=== PATIENT | female | born 1985 | race Caucasian/White ===

== ENCOUNTER → 2016-11-04 | Day surgery (SDC) | payer BC ==
--- NOTE | 2016-10-31 14:09 | Pre-Procedure Note/Attestation ---
Pre-Procedure Note/Attestation Complete Prior to Procedure Planned Procedure: not applicable Procedure Narrative: 1. Septoplasty 2. Submucous resection bilateral inferior turbinates. Indications for Procedure Pre-Operative Diagnosis: 1. Nasal septal deviation 2. Hypertrophied inferior turbinates Attestation I attest that I discussed the nature of the procedure; its benefits; risks and complications; and alternatives (and the risks and benefits of such alternatives ), prior to the procedure, with the patient (or the patient's legal sales representative consultant). I attest that, if there was a reasonable possibility of needing a blood transfusion, the patient (or the patient's legal sales representative consultant) was given the [facility] standardized written summary, pursuant to the [place] Blood Safety Act ([place] Health and Safety Code # 1645, as amended). I attest that I re-evaluated the patient just prior to the surgery and that there has been no change in the patient's H&P, job # [id number] Please note that the pt. has tolerate Ceftin in the past even though allergic to Amoxicillin. YUDELKA HOLCOMB Oct 31, 2016 14:09
--- NOTE | 2016-10-31 20:57 | Pre-op HX & Phy Repo 2 SIG ---
DATE OF ADMISSION: 11/04/2016 The patient had her History and Physical on 10/21/2016. INDICATION FOR SURGERY: The patient with nasal septal deviation and hypertrophied bilateral inferior turbinates who has failed nasal steroids and antihistamines. She is unable to breathe through her nose. PAST MEDICAL HISTORY: Significant for allergy, deviated nasal septum, hypertrophied turbinates as noted above. SOCIAL HISTORY: She has been a smoker daily for many years. She is single. No children. Denies alcohol or drug use. She is a student in clinical psychology. PAST SURGICAL HISTORY: Appendectomy at 15 years old in 2000, recently in 2004, voluntary interruption of in 2014. ALLERGIES: She is allergic to many antibiotics including sulfa drugs, guaifenesin, and amoxicillin. She is also allergic to shellfish. MEDICATIONS: Adderall; Ceftin, which she can tolerate and has in the past; Klonopin; cetirizine; Prozac; Flonase; and hydroxyzine pamoate. In addition, she also has Ashby for postoperative pain. PHYSICAL EXAMINATION: GENERAL: The patient is a 31-year-old female, 6'4", 190 pounds, BMI 32.61. VITAL SIGNS: Blood pressure 120/80, temperature 98.6, pulse 74, and respiratory rate 13. HEENT: Head, normocephalic. Eyes, PERRLA, EOMI. Nasal septal deviation. Hypertrophied bilateral inferior turbinates. Mouth, normal. CHEST: Clear to A and P. HEART: Normal S1 and S2. No S3 or S4. No murmur, bruit, gallop, or rub. EXTREMITIES: Grossly normal. ABDOMEN: Soft. Nontender. Normoactive bowel sounds. GENITOURINARY: Not done, and she has it done on a regular basis by her [employer] PROFESSIONAL. ASSESSMENT: She is a candidate for septoplasty and submucosal resection of right and left inferior turbinates because she has failed nasal steroids and antihistamines. PLAN: As above. Sky Olivia M.D. DR: MAUREEN JOB#: [id number] CC:
[2016-11-04] VITALS (10 sets, daily range): BP systolic 113–166; BP diastolic 58–114
[~2016-11-04] VITALS: Ht 162.6 cm; Wt 88.5 kg
[~2016-11-04] MED LIST: ADDERAL20 MG ORAL; Bupivacaine w/Epi 0.5% 30ml Vial INJ ONE; Cocaine 4% Vial TOPIC ONE; Dexamethasone 4mg/ml vial IVP ONE; Dexamethasone 4mg/ml vial ONE; HYDROmorphone 1mg/ml Carpuject SUBQ PRN; KLONOPIN1 MG ORAL; LR 1000ml 1,000 ML IV SCH; LR 1000ml 1,000 ML IVLG SCH; LR 1000ml ONE; Lidocaine 1% 10mg/ml/Epi 0.005mg/ml 30ml vial INJ ONE; MULTIVITAMINS1 EAC2 ORAL; Metoclopramide 10mg/2ml Inj IVP PRN; Midazolam 2mg/2ml Inj IVP PRN; Midazolam 2mg/2ml Inj ONE; NS Irrig 1000ml ONE; Norco 5mg/325mg tab ORAL PRN; PROBIOTIC1 EAC2 PO; PROZAC40 MG ORAL; Propofol 10mg/ml 20ml IV ONE; Saline Nasal Gel (Ayr) NASAL ONE; Sterile Water Irrig 1000ml IRRIG ONE; ZANTAC150 MG ORAL; ZYRTEC10 MG ORAL; ceFAZolin sod 1 GM in D5W 55 ML IV ONE; fentaNYL 100 mcg/2 mL IV ONE
--- NOTE | 2016-11-04 08:43 | Anethesia Preoperative Eval ---
Anesthesia Pre-op PMH/ROS General Date of Evaluation: Nov 04, 2016 Time of Evaluation: 08:33 Anesthesiologist: Ramila ASA Score: ASA 2 Mallampati Score Class I : Soft palate, uvula, fauces, pillars visible Class II: Soft palate, uvula, fauces visible Class III: Soft palate, base of uvula visible Class IV: Only hard plate visible Mallampati Classification: Class II Surgeon: Corwin Diagnosis: Deviated septum, hypertrophic turbinates Surgical Procedure: Septoplasty, turbinectomy Family History: no anesthesia problems Allergies: Coded Allergies: AMOXICILLIN (Verified Allergy, Intermediate, vomiting, 10/31/16) SHELLFISH DERIVED (Verified Allergy, Intermediate, vomiting, 10/31/16) SULFA (SULFONAMIDE ANTIBIOTICS) (Verified Allergy, Intermediate, vomiting , 10/31/16) Uncoded Allergies: guifenesin (Adverse Reaction, Intermediate, vomiting, 10/31/16) Medications: see eMAR Past Medical History Cardiovascular: Denies: CAD, HTN, MT, arrhythmia, other, valve dz Pulmonary: Denies: COPD, BISI, asthma, other Gastrointestinal/Genitourinary: Denies: CRI, ESRD, GERD, other Neurologic/Psychiatric: Reports: depression/anxiety - Anxiety, other - ADD, Denies: CVA, TIA, dementia Endocrine: Denies: DM, hypothyroidism, other, steroids HEENT: Denies: CACHIL DEHE (L), CACHIL DEHE (R), cataract (L), cataract (R), glaucoma, other Hematology/Immune: Denies: DVT, anemia, bleeding disorder, other Musculoskeletal/Integumentary: Denies: DDD, DJD, OA, RA, edema, other Other: obesity PMH Narrative: Obesity, ADD PSxH Narrative: AB, AP Anesthesia Pre-op Phys. Exam Physician Exam Last Vital Signs Date Time Temp Pulse Resp B/P Pulse Ox O2 Delivery O2 Flow Rate FiO2 11/04/16 07:17 98.1 74 18 113/58 99 Room Air Constitutional: NAD Neurologic: CN 2-12 intact Cardiovascular: RRR, no M/R/G Respiratory: CTA Gastrointestinal: S/NT/ND Airway Exam Mallampati Score: Class II MO: full ROM: full Teeth: intact Anesthesia Pre-op A/P Labs WNL Urine Test Test 11/04/16 07:00 Urine HCG, Qualitative Negative Risk Assessment & Plan Assessment: Healthy female Plan: GA, LMA Status Change Before Surgery: No Pre-Antibiotics Drug: Ancef Given Within 1 Hr of Incision: Yes Time Given: 09:50 ZBIGNIEW AGUILA M.D. Nov 04, 2016 08:43
--- NOTE | 2016-11-04 09:13 | Immediate Post-Op Evaluation ---
Immediate Post-Op Evalulation Immediate Post-Op Evalulation Procedure: Septoplasty, turbinectomy Date of Evaluation: Nov 04, 2016 Time of Evaluation: 09:40 IV Fluids: 600 Estimated Blood Loss: 30 Blood Pressure Systolic: 151 Blood Pressure Diastolic: 103 Pulse Rate: 99 Respiratory Rate: 12 O2 Sat by Pulse Oximetry: 98 Temperature (Fahrenheit): 97.9 Pain Score (1-10): 0 Nausea: No Vomiting: No Complications No complication Patient Status: awake, patent, none Hydration Status: adequate Drug: Ancef Given Within 1 Hr of Incision: Yes Time Given: 07:50 ZBIGNIEW AGUILA M.D. Nov 04, 2016 09:13
[2016-11-04] MEDS: Labetalol 5mg/ml 20ml vial IV PRN ×2 (09:39→10:22)
--- NOTE | 2016-11-04 09:40 | 48 Hour Post Anesthesia Eval ---
Post Anesthesia Evaluation Procedure: Septoplasty, turbinectomy Date of Evaluation: Nov 04, 2016 Time of Evaluation: 10:15 Blood Pressure Systolic: 148 0: 97 Pulse Rate: 94 Respiratory Rate: 14 O2 Sat by Pulse Oximetry: 98 Airway: patent Nausea: No Vomiting: No Pain Intensity: 3 Hydration Status: adequate Cardiopulmonary Status: Stable Mental Status/LOC: patient returned to baseline Follow-up Care/Observations: As per surgery Post-Anesthesia Complications: No anesthetic complication Follow-up care needed: N/A ZBIGNIEW AGUILA M.D. Nov 04, 2016 09:40
[2016-11-04] MEDS: Hydromorphone 0.5mg/0.5ml inj IVP PRN ×2 (09:50→10:09)
--- NOTE | 2016-11-04 09:51 | Brief Operative Note ---
Immediate Post Operative Note Operative Note Pre-op Diagnosis: 1. Nasal septal deviation 2. Hypertrophied inferior turbinates Procedure: 1. Septoplasty 2. SMR bilateral inferior turbinates Post-op Diagnosis: same as pre-op Surgeon: Thad Holcomb Sail Maker: none Additional Surgeons: none Anesthesiologist: Ramila Anesthesia: general Specimen: none Complications: none Condition: stable Estimated Blood Loss: volume - 10 cc Drains: none Packing: Stamberger nasal gel Implant(s) used?: No YUDELKA HOLCOMB Nov 04, 2016 09:50
--- NOTE | 2016-11-04 09:56 | Discharge Instructions ---
Discharge Instructions Discharge Instructions Diet: regular Resume Normal Activity?: No Activity: light activity Pneumonia Vaccine: pt refused vaccine Influenza Vaccine (Jun to Nov): pt refused vaccine Follow Up Orders pt has printed instructions given to her at her pre op visit in my office along with Rx fro Ceftin and [place]. Please note, although pt is allergic to Amoxicillin, she states she is fine with Ceftin-which she has used in her adult life without allergic reaction. Return to Work/School on: Nov 18, 2016 For Surgical Patients Dressing Care: may change May shower: No Contact your physician for: bleeding, pain, tenderness, redness, swelling, yellowish discharge in the op. site For Congestive Heart Failure Reminder Report to your physician any weight gain of 5 pounds or more in one week. YUDELKA HOLCOMB Nov 04, 2016 09:56
--- NOTE | 2016-11-04 20:28 | Operative Note - Dictated ---
DATE OF OPERATION: 11/04/2016 SURGEON: Sky Olivia M.D. CANE BURNER: None. ANESTHESIOLOGIST: Mark De Anda M.D. Anesthesia: General LMA with 8 mL 1% lidocaine with 1:100,000 epinephrine and Marcaine 0.5% with 1:200,000 epinephrine. INDICATION FOR SURGERY: The patient with nasal airway obstruction has failed nasal steroids and antihistamines with a septal deviation and hypertrophied bilateral inferior turbinates. PREOPERATIVE DIAGNOSIS: Septal deviation and hypertrophied bilateral inferior turbinates. POSTOPERATIVE DIAGNOSIS: Septal deviation and hypertrophied bilateral inferior turbinates. PROCEDURE: 1. Septoplasty. 2. Submucous resection of right inferior turbinate. 3. Submucous resection of left inferior turbinate. DESCRIPTION OF TECHNIQUE: The patient was prepped and draped in the usual manner. Intubated with the LMA. Time-out was performed and proper equipment was agreed upon and the procedures to be done. Initially, I injected with the aforementioned lidocaine, Marcaine, and epinephrine mixture as well as topically on four pledgets, two on either nostril placed 4 mL of 4% topical cocaine. I then proceeded to make a [place] incision with a 15 blade on the left side elevating with a dental elevator subperiosteally on both sides of the septal cartilage. The septal cartilage was then removed with a straight Fatou after a cut was made 4 mm above the inferior aspect of the quadrangular cartilage and 1 cm posterior. This was then closed with a 4-0 plain suture x1. I then proceeded to make an incision on either inferior turbinate with a 15 blade. Elevated it with the radiofrequency wand #55 after coating with saline gel in the setting of six for 10 seconds. This was done twice for either inferior turbinate and then there were outfractured with a Boies elevator. Area was suctioned clean. Stammberger nasal gel was placed a total of 1 mL for both sides. A mustache dressing was then placed. Sponge and needle count was correct. ESTIMATED BLOOD LOSS: 10 mL. COUNTS: None. DRAINS: None. The patient was awake, alert, and stable in post extubation and in the recovery room. Sky Olivia M.D. DR: CHUNG JOB#: [id number] CC:
== END | disposition home or self-care (01) ==
LOC: SUR 06:50
DX: J34.2 Deviated nasal septum (principal); J34.3 Hypertrophy of nasal turbinates; F17.210 Nicotine dependence, cigarettes, uncomplicated; F32.9 Major depressive disorder, single episode, unspecified; F41.9 Anxiety disorder, unspecified; E66.9 Obesity, unspecified; Z68.32 Body mass index [BMI] 32.0-32.9, adult; Z88.1 Allergy status to other antibiotic agents; Z88.0 Allergy status to penicillin; Z88.2 Allergy status to sulfonamides; Z91.013 Allergy to seafood
CPT/HCPCS: 30140; 30520; 81025; J0690; J1100; J1170; J2250; J2405; J2704; J3010; J7120; 94003; 94150